=== PATIENT | female | born 1995 | race African-American/Black ===

== ENCOUNTER 2022-12-20 04:29 | Emergency (ER) | payer MEDICAID ==
[~2022-12-20] VITALS: Ht 162.6 cm; Wt 87.0 kg
[2022-12-20 04:43] VITALS: BP 126/95
[2022-12-20] MEDS ORDERED: HYDR-4005 MT (15:54)
[2022-12-20] MEDS ORDERED: IBUP-2029 MT (15:54)
[2022-12-20] MEDS ORDERED: AMOX1TAB16 MT (15:54)
== END 2022-12-20 09:18 | disposition left against medical advice (07) ==
LOC: ER 04:29
DX: Z53.21 Procedure and treatment not carried out due to patient leaving prior to being seen by health care provider (principal)
CPT/HCPCS: 99281; Z7610

== ENCOUNTER 2022-12-20 08:55 | Emergency (ER) | payer MEDICAID ==
[~2022-12-20] VITALS: Ht 162.6 cm; Wt 91.0 kg
[2022-12-20 09:42] LABS: HEMATOCRIT. 39.6 % (36.0-48.0); MEAN CORPUSCULAR HEMOGLOBIN 30.8 pg (28.0-32.0); MEAN PLATELET VOLUME 7.8 fl (7.4-10.4); PLATELET 404 x1000/uL (130-400); RED BLOOD CELL COUNT 4.21 mill/uL (4.2-5.4); RED CELL DISTRIBUTION WIDTH 15.4 % (11.6-14.6)
[2022-12-20 09:52] LABS: CHLORIDE 106 mEq/L (98-107)
[2022-12-20 10:00] LABS: B-HCG QUANTITATIVE 71 mIU/mL (<3)
[2022-12-20 10:36] LABS: PLATELET ESTIMATE SLIGHTLY INCREASED
[2022-12-20] MEDS ORDERED: TRAMADOL 50MG TABLET PO NR (12:30)
[2022-12-20] MEDS ORDERED: KETOROLAC 60MG/2ML VIAL IM NR (12:30)
[2022-12-20] MEDS ORDERED: KETOROLAC 30MG/ML VIAL IV NR (12:45)
[2022-12-20 12:59] VITALS: BP 136/103
[2022-12-20 13:52] LABS: CLARITY URINE CLEAR (CLEAR); COLOR URINE YELLOW (YELLOW); KETONES URINE 4+ (NEGATIVE); LEUKOCYTE ESTERASE URINE NEGATIVE (NEGATIVE); NITRITE URINE NEGATIVE (NEGATIVE); OCCULT BLOOD URINE NEGATIVE (NEGATIVE); PH URINE 5.5 (4.5-8.0); PROTEIN URINE NEGATIVE (NEGATIVE); UROBILINOGEN URINE 0.2 E.U./dL (0.2-1.0)
[2022-12-20] MEDS ORDERED: MORPHINE SULFATE 4 MG/ML CPJ (NOT FOR IM USE) IV ONE (14:15)
[2022-12-20] MEDS ORDERED: SODIUM CHLORIDE 0.9% 100 ML IV ONE (14:15)
[2022-12-20] MEDS ORDERED: IOHEXOL-300 100 ML BOTTLE ONE (14:34)
[2022-12-20] MEDS ORDERED: IBUP-2029 MT (15:54)
[2022-12-20] MEDS ORDERED: HYDR-4005 MT (15:54)
[2022-12-20] MEDS ORDERED: AMOX1TAB16 MT (15:54)
[2022-12-20] MEDS ORDERED: HYDROCODONE/ACETAMINOPHEN 7.5/325MG TABLET PO PRN (16:15)
== END 2022-12-20 16:26 | disposition home or self-care (01) ==
LOC: ER 09:10
DX: O34.11 Maternal care for benign tumor of corpus uteri, first trimester (principal); Z3A.01 Less than 8 weeks gestation of pregnancy
CPT/HCPCS: 36415; 74177; 76830; 76856; 80053; 81003; 81025; 84702; 85025; 86850; 86900; 86901; 96361; 96374; 96375; 99285; J1885; J2270; J7050; Q9967; Z7610